=== PATIENT | male | born 1975 | race Asian ===

== ENCOUNTER 2023-08-14 10:38 | Outpatient (AMB) | payer OTHER, SELFPAY ==
--- NOTE | 2023-08-14 10:52 | A.SPINEOV_ITS ---
Intake Intake Visit Reasons: Back pain Intake Note: Mr. Sanderson is here today c/o Assessment & Plan Assessment & Plan (1) Lumbar disc herniation: Code(s): M51.26 - Other intervertebral disc displacement, lumbar region Plan Dear Uziel, Thank you for referring Mr Lee to our office today. He is a very nice 47-year-old [place] gentleman who presents to the office today for evaluation of what sounds like a resolving herniated disc in his back. He was in [place] in the middle of March this year and he was lifting luggage. He immediately felt something let go in his back and which just having back pain but when 2 some kind of chiropractor in [place] and they manipulated his leg and stretch them and from that point on he felt a severe 10/10 pain radiating down to his leg. He was bedbound for 2 weeks. He was on numerous medications to help with the pain. After about 2 weeks he was able to get up and start walking around with a walker and then a few weeks after that he was able to fly back to [place]. Over the course of the last 2-3 months the pain is significantly gotten better. He still does feel pain in his low back going down his right leg but it is very mild. It is not even bad enough for him to need to take Motrin or Tylenol. He underwent an MRI in June at [facility] showing herniated disc at L4-5 on the right. PMH: He is a diabetic with an A1c of 6.6, left foot surgery, high cholesterol Social hx: He does not smoke Medications: He currently takes simvastatin, cyclobenzaprine Allergies: None Physical exam: He has some mild weakness of his extensor hallucis longus but otherwise his strength and gait reflexes are normal Imaging review: Lumbar MRI done at [facility] in June of 2023 shows a right-sided L4-5 disc herniation compressing the right L5 nerve root. Impression: This is a very nice 47-year-old [place] gentleman who presents with what sounds like a resolving disc herniation in his lumbar region. The pain initially was a 10/10 after his lifting some luggage but now is down to where it is barely noticeable. His MRI did still shows that he has did disc bulge/herniation on the right at L4-5 but this is likely much smaller than what it was during the initial herniation. At this time because he is clinically doing better there is no surgery to be done. We discussed the natural history of disc herniations. I urged him to continue to use caution if he is lifting anything but otherwise he can be active, do as much walking as he would like. If the pain comes back he will let us know and we would gladly offer him microdiskectomy. Thank you for allowing us to care for your patient. The total time spent with this visit with this patient was 45 minutes reviewing history, physical exam, lumbar imaging review, and implementation of treatment plan or further diagnostic testing Dariel Esocbar MD,PhD [facility] Coding Level of Care Code New Pt Level 4 (29871) Diagnoses Lumbar disc herniation M51.26
== END 2023-08-14 11:20 | disposition home or self-care (01) ==
PROVIDERS: Referring Provider Physician Assistant; Visit Provider Physician Assistant
DX: M51.26 Other intervertebral disc displacement, lumbar region (principal)
CPT/HCPCS: 99204

== ENCOUNTER → 2023-08-14 10:38 | Outpatient (BNVA) | payer OTHER, SELFPAY | PROVIDERS: Visit Provider Physician Assistant ==